=== PATIENT | male | born 1985 | race American Indian/Alaskan Native ===

== ENCOUNTER 2017-11-18 19:07 | Emergency (ER) | payer OTHER ==
[2017-11-18 19:42] LABS: Hematocrit 40.2 % (35.5-45.6); Hemoglobin 13.4 gm/dl (11.8-15.2); Mean Corpuscular HGB Conc 33 % (32-34); Mean Corpuscular Hemoglobin 30 pg (28-32); Mean Corpuscular Volume 90 fl (84-94); Platelet Count 222 K/mm3 (140-440); Red Blood Count 4.46 M/mm3 (3.65-5.03); Red Cell Distribution Width 14.1 % (13.2-15.2)
[2017-11-18 19:49] LABS: INR 0.88 (0.87-1.13)
[2017-11-18 19:50] LABS: Partial Thromboplastin Time 27.9 Sec. (24.2-36.6)
[2017-11-18 19:53] LABS: BUN/Creatinine Ratio 14; Blood Urea Nitrogen 15 mg/dL (9-20); Calcium 8.8 mg/dL (8.4-10.2); Hemolysis Index 15
[2017-11-18] MEDS ORDERED: LOVENOX SUB-Q ONE (23:46)
[2017-11-18] MEDS ORDERED: NORCO 5/325 PO ONE (23:46)
--- NOTE | 2017-11-18 23:53 | Emergency Department Report ---
HPI - HPI HPI: Room 5 The patient is a 32-year-old male presenting with a chief complaint of right leg pain. The patient states last week he had a [address] only stopping 1 gas. 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 The patient states for the past week she's had pain in the right calf and popliteal fossa. Patient states the pain is constant and worsened yesterday. Patient denies any history of trauma or swelling. Patient denies fever. Patient denies any form of chest pain or shortness of breath. Patient denies pleurisy. The patient currently gives his pain a score of 8/10 Location: Right leg Duration: 1 week Quality: Pain Severity: 8/10 Modifying factors: [see above] Context: [see above] Mode of transportation: Patient drove himself to the ED. Patient made aware that he cannot drive if he is administered narcotic pain medication in the ED <NATE SELLERS - Last Filed: 11/18/17 23:48> <JEFFERY MENDOZA - Last Filed: 11/19/17 10:40> - General Chief Complaint: Extremity Injury, Lower Time Seen by Provider: 11/18/17 23:25 ED Past Medical Hx - Past Medical History Previous Medical History?: No - Surgical History Past Surgical History?: No - Family History Family history: no significant - Social History Smoking Status: Never Smoker Substance Use Type: None (denies illicit drug use), Alcohol (occasional) <NATE SELLERS - Last Filed: 11/18/17 23:48> <JEFFERY MENDOZA - Last Filed: 11/19/17 10:40> - Medications Home Medications: Home Medications Medication Instructions Recorded Confirmed Last Taken Type Apixaban [Eliquis] 10 mg PO BID #14 tablet 11/19/17 Unknown Rx ED Review of Systems ROS: Stated complaint: RIGHT CALF PAIN Other details as noted in HPI Constitutional: denies: fever Respiratory: denies: shortness of breath Cardiovascular: denies: chest pain Musculoskeletal: myalgia <NATE SELLERS - Last Filed: 11/18/17 23:48> ROS: Stated complaint: RIGHT CALF PAIN Other details as noted in HPI <JEFFERY MENDOZA - Last Filed: 11/19/17 10:40> Physical Exam - Physical Exam Vital Signs: Vital Signs 04/30/18 19:25 Temperature 98.6 F Pulse Rate 60 Respiratory 18 Rate Blood Pressure 137/70 O2 Sat by Pulse 100 Oximetry Physical Exam: GENERAL: The patient is well-developed well-nourished male sitting on stretcher not appearing to be in acute distress. [] HEENT: Normocephalic. Atraumatic. Extraocular motions are intact. Patient has moist mucous membranes. NECK: Supple. Trachea midline CHEST/LUNGS: Clear to auscultation. There is no respiratory distress noted. HEART/CARDIOVASCULAR: Regular. There is no tachycardia. There is no gallop rub or murmur. 2+ right DP ABDOMEN: Abdomen is soft, nontender. Patient has normal bowel sounds. There is no abdominal distention. SKIN: There is no rash. There is no edema. There is no diaphoresis. NEURO: The patient is awake, alert, and oriented. The patient is cooperative. The patient has normal speech MUSCULOSKELETAL: There is tenderness to palpation of the right calf. No cords palpated. There is no evidence of acute injury. <NATE SELLERS K - Last Filed: 11/18/17 23:48> - Physical Exam Vital Signs: Vital Signs 11/18/17 11/18/17 11/19/17 19:25 23:45 00:00 Temperature 98.6 F Pulse Rate 60 48 L 49 L Respiratory 18 9 L 21 Rate Blood Pressure 137/70 115/77 Blood Pressure [Left] O2 Sat by Pulse 100 100 100 Oximetry 11/19/17 11/19/17 11/19/17 00:15 00:17 00:22 Temperature 97.4 F L Pulse Rate 47 L 47 L Respiratory 11 L 12 Rate Blood Pressure 115/77 115/77 Blood Pressure [Left] O2 Sat by Pulse 100 99 Oximetry 11/19/17 11/19/17 11/19/17 00:30 00:45 01:00 Temperature Pulse Rate 47 L 49 L 51 L Respiratory 11 L 11 L 14 Rate Blood Pressure 113/74 115/77 113/74 Blood Pressure [Left] O2 Sat by Pulse 100 99 99 Oximetry 11/19/17 11/19/17 11/19/17 01:15 01:30 01:45 Temperature Pulse Rate 53 L 53 L 55 L Respiratory 14 20 12 Rate Blood Pressure 118/66 106/69 118/66 Blood Pressure [Left] O2 Sat by Pulse 98 99 99 Oximetry 11/19/17 11/19/17 11/19/17 02:00 02:15 02:35 Temperature Pulse Rate 50 L 54 L Respiratory 12 12 16 Rate Blood Pressure 107/66 107/66 Blood Pressure [Left] O2 Sat by Pulse 98 98 Oximetry 11/19/17 11/19/17 11/19/17 03:15 04:01 05:00 Temperature Pulse Rate 84 52 L 46 L Respiratory 15 11 L 11 L Rate Blood Pressure 100/53 100/58 107/65 Blood Pressure [Left] O2 Sat by Pulse 99 99 Oximetry 11/19/17 11/19/17 11/19/17 06:00 07:00 08:00 Temperature 97.4 F L Pulse Rate 50 L 60 60 Respiratory 10 L 10 L 10 L Rate Blood Pressure 109/71 116/74 Blood Pressure 116/74 [Left] O2 Sat by Pulse 99 100 100 Oximetry <JEFFERY MENDOZA - Last Filed: 11/19/17 10:40> ED Course Vital Signs 11/18/17 19:25 Temperature 98.6 F Pulse Rate 60 Respiratory 18 Rate Blood Pressure 137/70 O2 Sat by Pulse 100 Oximetry <NATE SELLERS - Last Filed: 11/18/17 23:48> Vital Signs 11/18/17 11/18/17 11/19/17 19:25 23:45 00:00 Temperature 98.6 F Pulse Rate 60 48 L 49 L Respiratory 18 9 L 21 Rate Blood Pressure 137/70 115/77 Blood Pressure [Left] O2 Sat by Pulse 100 100 100 Oximetry 11/19/17 11/19/17 11/19/17 00:15 00:17 00:22 Temperature 97.4 F L Pulse Rate 47 L 47 L Respiratory 11 L 12 Rate Blood Pressure 115/77 115/77 Blood Pressure [Left] O2 Sat by Pulse 100 99 Oximetry 11/19/17 11/19/17 11/19/17 00:30 00:45 01:00 Temperature Pulse Rate 47 L 49 L 51 L Respiratory 11 L 11 L 14 Rate Blood Pressure 113/74 115/77 113/74 Blood Pressure [Left] O2 Sat by Pulse 100 99 99 Oximetry 11/19/17 11/19/17 11/19/17 01:15 01:30 01:45 Temperature Pulse Rate 53 L 53 L 55 L Respiratory 14 20 12 Rate Blood Pressure 118/66 106/69 118/66 Blood Pressure [Left] O2 Sat by Pulse 98 99 99 Oximetry 11/19/17 11/19/17 11/19/17 02:00 02:15 02:35 Temperature Pulse Rate 50 L 54 L Respiratory 12 12 16 Rate Blood Pressure 107/66 107/66 Blood Pressure [Left] O2 Sat by Pulse 98 98 Oximetry 11/19/17 11/19/17 11/19/17 03:15 04:01 05:00 Temperature Pulse Rate 84 52 L 46 L Respiratory 15 11 L 11 L Rate Blood Pressure 100/53 100/58 107/65 Blood Pressure [Left] O2 Sat by Pulse 99 99 Oximetry 11/19/17 11/19/17 11/19/17 06:00 07:00 08:00 Temperature 97.4 F L Pulse Rate 50 L 60 60 Respiratory 10 L 10 L 10 L Rate Blood Pressure 109/71 116/74 Blood Pressure 116/74 [Left] O2 Sat by Pulse 99 100 100 Oximetry <JEFFERY MENDOZA - Last Filed: 11/19/17 10:40> ED Medical Decision Making - Lab Data Result diagrams: 11/18/17 19:30 11/18/17 19:30 Laboratory Tests 11/18/17 11/18/17 11/18/17 19:30 19:30 19:30 WBC 5.9 RBC 4.46 Hgb 13.4 Hct 40.2 MCV 90 MCH 30 MCHC 33 RDW 14.1 Plt Count 222 PT 12.4 INR 0.88 APTT 27.9 D-Dimer 517.24 H Sodium 139 Potassium 4.4 Chloride 102.1 Carbon Dioxide 27 Anion Gap 14 BUN 15 Creatinine 1.1 Estimated GFR > 60 BUN/Creatinine Ratio 14 Glucose 86 Calcium 8.8 - Differential Diagnosis DVT, Obregon's cyst, leg strain <NATE SELLERS - Last Filed: 11/18/17 23:48> - Lab Data Result diagrams: 11/18/17 19:30 11/18/17 19:30 - Medical Decision Making Discussed results of the duplex ultrasound with the patient. Patient given a prescription for a liquids and a drug prescription card as well. <JEFFERY MENDOZA - Last Filed: 11/19/17 10:40> Critical care attestation.: If time is entered above; I have spent that time in minutes in the direct care of this critically ill patient, excluding procedure time. <NATE SELLERS - Last Filed: 11/18/17 23:48> Critical care attestation.: If time is entered above; I have spent that time in minutes in the direct care of this critically ill patient, excluding procedure time. <JEFFERY MENDOZA - Last Filed: 11/19/17 10:40> ED Disposition Time of Disposition: 23:55 (patient awaiting RLE Doppler in the a.m. for dispo) <NATE SELLERS - Last Filed: 11/18/17 23:48> Is pt being admited?: No Does the pt Need Aspirin: No Time of Disposition: 10:40 <JEFFERY MENDOZA - Last Filed: 11/19/17 10:40> Clinical Impression: DVT (deep venous thrombosis) Disposition: - TO HOME OR SELFCARE Condition: Stable Instructions: Deep Venous Thrombosis (ED) Prescriptions: Apixaban [Eliquis] 10 mg PO BID #14 tablet Referrals: PRIMARY CARE, [Primary Care Provider] - 3-5 Days SIMBA LEON MD [Staff Physician] - 3-5 Days Forms: Work/School Release Form
[2017-11-19] MEDS ORDERED: ELIQUIS PO ONE (10:33)
[2017-11-19 10:55] VITALS: BP 109/65
--- NOTE | 2017-11-20 11:36 | Vascular Lab Report ---
Right Lower Extremity Venous Duplex Study: Reason for Exam: Pain and swelling of the right lower extremity. Comments on the Right: Acute partially occluding deep venous thrombosis is seen in the popliteal vein and the adjacent gastrocnemius veins. The remaining veins visualized are freely compressible without evidence of internal echogenicity. Spontaneous and phasic flow is present proximally. Comments on the Left: A limited duplex study was done of the proximal veins of the left lower extremity. All veins visualized are freely compressible without evidence of internal echogenicity. Flow is spontaneous and phasic throughout. No evidence of acute or chronic thrombus is seen in any of the vessels visualized. Impression: Acute, partially occluding deep venous thrombosis in the right popliteal vein. The nearby gastrocnemius veins are involved as well.
== END 2017-11-19 11:00 | disposition home or self-care (01) ==
LOC: ED 19:07
DX: M79.604 Pain in right leg (principal)
CPT/HCPCS: 36415; 80048; 85027; 85379; 85610; 85730; 93971; 96372; 99284; J1650